=== PATIENT | male | born 1965 | race Caucasian/White ===

== ENCOUNTER 2016-10-13 11:08 | Day surgery (SDC) | payer OTHER, BC ==
[2016-10-12 14:34] LABS: BASO % 0.4 %; BASO ABS # 0.03 K/uL (0-0.2); COMPLETE YES; EOS % 1.9 %; HEMATOCRIT 46.9 % (42-52); IG% 0.2 %; LYMPH % 28.1 %; LYMPH ABS # 2.36 K/uL (1.2-3.4); MEAN CELL VOLUME 85.6 fL (80-100); MEAN CORPUSCULAR HEMOGLOBIN 30.7 pg (25-34); MEAN CORPUSCULAR HGB CONC 35.8 g/dl (32-36); MEAN PLATELET VOLUME 9.3 fL (7.4-10.4); MONO % 8.6 %; NEUT % 60.8 %; PLATELET COUNT 264 K/uL (130-400); RED BLOOD COUNT 5.48 M/uL (4.7-6.1); WHITE BLOOD COUNT 8.39 K/uL (4.8-10.8)
[2016-10-12 14:37] LABS: URINE APPEARANCE CLEAR (CLEAR); URINE BILIRUBIN NEG (NEG); URINE COLOR YELLOW; URINE NITRITE NEG (NEG); URINE PH 6.5 (4.5-7.5); URINE SPECIFIC GRAVITY 1.011 (1.000-1.030); UROBILINOGEN NEG (NEG)
[2016-10-12 14:43] LABS: MANUAL MICROSCOPIC REQUIRED? NO; REVIEW REQ? NO
[2016-10-12 14:56] VITALS: BMI 24.0; BMI 25.0
[2016-10-12 15:03] LABS: BUN/CREATININE RATIO 14.7 (10-20); CALCIUM 9.1 mg/dl (8.5-10.1); CREATININE 0.88 mg/dl (0.60-1.40); POTASSIUM 4.1 mmol/L (3.5-5.1)
--- NOTE | 2016-10-12 19:12 | HISTORY & PHYSICAL EXAMINATION ---
DATE OF ADMISSION: 10/13/2016 SUBJECTIVE AND CHIEF COMPLAINT: Left ankle swelling. HISTORY OF PRESENT ILLNESS: This is a patient who approximately 4 months ago sustained a fall from a height and had an intra-articular distal tibia fracture as well as a fibula fracture. He had an ORIF performed in [place] and has been following up here in [place] closer to home. He was progressing well; however, he started having swelling at the lateral aspect of the ankle. He was seen on 10/12/2016 and noted to have what appeared to be a hematoma within the lateral aspect of the left ankle. He is currently being set up for I\T\D of the area with possible cultures being done as the discharge is purulent. PAST MEDICAL HISTORY: History of skin cancer. SOCIAL HISTORY: The patient denies tobacco use, has approximately 12 alcoholic drinks per week. FAMILY HISTORY: Noncontributory. PAST SURGICAL HISTORY: Tonsillectomy and a left ankle surgery in May of 2016. ALLERGIES: No known drug allergies. CURRENT MEDICATIONS: None. OBJECTIVE PHYSICAL EXAMINATION: GENERAL: The patient is alert and oriented x3. He is in no acute distress. He is a well-dressed, well-nourished 51-year-old male whose affect is appropriate. CARDIOVASCULAR: Heart has a regular rhythm and rate without murmurs. LUNGS: Clear to auscultation bilateral. Dorsalis pedis, posterior tib pulse +2/4. Cap refill less than 2 seconds. LYMPHATIC: No evidence of any swollen lymph nodes. MUSCULOSKELETAL: The patient is partial weightbearing on the left lower extremity on a walking boot. After removal of the walking boot, he was noted to have well-healed surgical incisions. At the lateral aspect of the ankle, there is noted to be a fluctuant area. There is no erythema, no ecchymosis noted. There is no open draining area. He has decreased range of motion and strength of left lower extremity. NEUROLOGIC: Sensation normal and intact distally. SKIN: As previously noted, there is well-healed surgical incision, left ankle. X-RAY EXAM: Multiple views of the left ankle demonstrate stable hardware and implants in the distal tibia with a stable and well aligned distal tibia and distal fibula fractures. ASSESSMENT AND DIAGNOSES: 1. Left ankle swelling, possible hematoma. PLAN: Above assessment was discussed with the patient. At this time, it was recommended the patient undergo a left ankle I\T\D of hematoma of the lateral ankle wound cultures. All potential risks, benefits, complications, alternatives and rehab have been discussed with the patient. At this time, he wishes to proceed with the surgery as indicated. He will be scheduled for the surgery 10/13/2016. OMAR
[~2016-10-13] VITALS: Ht 172.7 cm; Wt 75.0 kg
[~2016-10-13 11:08] MED LIST: CALC-478 PO; CEFAZOLIN 1000MG/55 ML D5W IV SCH; CEFAZOLIN 2000 MG/60 ML D5W 60 ML IV SCH; CHOL1000 PO; LACTATED RINGER'S 1000ML 1,000 ML IV SCH; MULT-506 PO
[2016-10-13 11:37] VITALS: BP 147/93; PULSE 84; TEMP 36.6; O2SAT 98; Ht 172.7 cm; Wt 75.0 kg
--- NOTE | 2016-10-13 11:49 | History & Physical Bridge Note ---
H&P Re-Evaluation Bridge Note: I have examined the patient, reviewed the History & Physical and in the interval since the performance of the History & Physical I have noted the following changes of clinical significance: No changes noted
[2016-10-13] MEDS ORDERED: MIDAZOLAM HCL 1 MG/ML 2ML VIAL ONE (12:23)
[2016-10-13] MEDS ORDERED: DEXAMETHASONE SOD INJ 4 MG/ML VIAL ONE (12:23)
[2016-10-13] MEDS ORDERED: ONDANSETRON INJ 2 MG/ML 2 ML VIAL ONE (12:23)
[2016-10-13] MEDS ORDERED: PROPOFOL IV EMULSION 10 MG/ML 20 ML VIAL IV ONE (12:23)
[2016-10-13] MEDS ORDERED: LIDOCAINE HCL 2% 2 ML VIAL (20MG/ML) ONE (12:23)
[2016-10-13] MEDS ORDERED: FENTANYL CITRATE INJ 50 MCG/1 ML 2 ML VIAL ONE (12:24)
[2016-10-13] MEDS ORDERED: BUPIVACAINE 0.5 % 5 MG/1 ML MPF 30ML VIAL ONE (13:09)
[2016-10-13] MEDS ORDERED: BACITRACIN 50000 UNIT VIAL ONE ×2 (13:09→14:11)
[2016-10-13] MEDS ORDERED: PROMETHAZINE HCL INJ 6.25 MG in SODIUM CHLORIDE 0.9% 50ML 50 ML IV PRN (15:15)
[2016-10-13] MEDS ORDERED: HYDROmorphone INJ 1 MG/ML SYR IV PRN (15:15)
[2016-10-13] MEDS ORDERED: ATROPINE SULFATE 0.1 MG/ML 5ML SYR IV PRN (15:15)
[2016-10-13] MEDS ORDERED: ONDANSETRON INJ 2 MG/ML 2 ML VIAL IV PRN (15:15)
[2016-10-13] MEDS ORDERED: EpHEDrine SULFATE INJ 50 MG/ML AMP IV PRN (15:15)
[2016-10-13] MEDS ORDERED: FENTANYL CITRATE INJ 50 MCG/1 ML 2 ML VIAL IV PRN (15:15)
--- NOTE | 2016-10-13 15:34 | [facility] Post Operative Brief Note ---
Immediate Operative Summary Operative Date Oct 13, 2016. Pre-Operative Diagnosis Left lateral ankle hematoma Post-Operative Diagnosis Left lateral ankle hematoma Procedure(s) Performed Incision and drainage, left lateral ankle hematoma Surgeon Dr. Lemon Brick Molder Hand Surgeon(s) none Estimated Blood Loss 3ml Findings See Dict Specimens culture: left ankle aerobic, anerobic, gram stain sent at 1501 Drains None Anesthesia GLMA w/ local Complication(s) None Disposition Recovery Room / PACU
--- NOTE | 2016-10-13 15:42 | Discharge Instructions ---
Discharge Instructions Admission Reason for Admission: Left Ankle Hematoma Discharge Discharge Diagnosis / Problem: Left Ankle Hematoma Discharge Goals Goal(s): Decrease discomfort, Improve function Activity Recommendations Activity Limitations: per Instructions/Follow-up section . Instructions / Follow-Up Instructions / Follow-Up ACTIVITY RECOMMENDATIONS: Limitations: Partial heel weight bearing only if able to tolerate. SPECIAL CARE INSTRUCTIONS: * Some drainage onto the dressing is normal and is no cause for alarm. * Some swelling is natural especially after walking. * When resting, keep your foot elevated above the level of your heart. * Call [facility] if you notice: -Increased drainage -Fever over 101 degrees F -Severe constant pain BANDAGE: * Leave bandage/cast in place unless otherwise directed. * Keep bandage/cast dry at all times. FOLLOW UP VISIT WITH DR. PRICE If appointment is not already scheduled: Please call [facility] after you get home today to schedule a follow-up appointment for next week with Dr. Price at . Current Hospital Diet Patient's current hospital diet: Discharge Diet Recommended Diet: Regular Diet Procedures Procedures Performed: Incision and drainage, left lateral ankle hematoma Pending Studies Studies pending at discharge: no Medical Emergencies . Who to Call and When: Medical Emergencies: If at any time you feel your situation is an emergency, please call [phone] immediately. . Non-Emergent Contact Non-Emergency issues call your: Surgeon Call Non-Emergent contact if: temperature is above 101, wound has increased redness, wound has increased pain . "Provider Documentation" section prepared by Nemesio Price. VTE Core Measure Inpt VTE Proph given/why not?: Treatment not indicated
[2016-10-13] MEDS ORDERED: OXYCODONE/ACETAMINOPHEN 5-325 TAB PO PRN (15:45)
--- NOTE | 2016-10-13 15:55 | Anesthesiology Progress Note ---
Anesthesia Post Op Note Date & Time Oct 13, 2016 at 15:55 Vital Signs Pain Intensity: 0 Vital Signs Past 12 Hours Date Time Temp Pulse Resp B/P Pulse Ox O2 Delivery O2 Flow Rate FiO2 10/13/16 15:45 139/98 10/13/16 15:44 71 19 10/13/16 15:44 71 19 97 10/13/16 15:40 139/98 10/13/16 15:39 78 19 99 10/13/16 15:39 79 19 10/13/16 15:35 137/98 10/13/16 15:34 74 18 100 10/13/16 15:34 75 18 10/13/16 15:30 138/95 10/13/16 15:29 76 17 10/13/16 15:29 76 17 100 10/13/16 15:25 136/90 10/13/16 15:24 77 14 130/90 10/13/16 15:24 14 10/13/16 15:24 36.0 76 18 130/90 99 Mask 10 10/13/16 11:37 36.6 84 20 147/93 98 Room Air Notes Mental Status: alert / awake / arousable, participated in evaluation Pt Amnestic to Procedure: Yes Nausea / Vomiting: adequately controlled Pain: adequately controlled Airway Patency, RR, SpO2: stable & adequate BP & HR: stable & adequate Hydration State: stable & adequate Anesthetic Complications: no major complications apparent
[2016-10-13 16:12] VITALS: BP 151/90; PULSE 73; TEMP 36.5; O2SAT 97
[2016-10-13 16:45] VITALS: BP 142/87; PULSE 75; O2SAT 98
[2016-10-13 17:15] VITALS: BP 124/76; PULSE 82; TEMP 36.9; O2SAT 98
--- NOTE | 2016-10-13 23:24 | OPERATIVE REPORT ---
DATE OF OPERATION: 10/13/2016 PREOPERATIVE DIAGNOSIS: Hematoma, left lateral ankle. POSTOPERATIVE DIAGNOSIS: Same. PROCEDURE: Evacuation of hematoma, left lateral ankle. SURGEON: Dr. Lemon. MOTOR OPERATOR: None. ANESTHESIA: General LMA with local. SPECIMENS: Aerobic, anaerobic, Gram stain. DRAINS: None. COMPLICATIONS: None. BLOOD LOSS: 3 mL. PERTINENT HISTORY: This is a 51-year-old gentleman, who had sustained a significant falling injury on his left lower extremity in [place]. He underwent ORIF in [place] and was then doing his postop followup care with my clinic. The patient developed redness, pain and swelling over the lateral aspect of his left ankle approximately 2 weeks ago and noticed intermittent worsening. He has had no redness or streaking up the leg. No fevers or chills. No loss of appetite, nausea, vomiting or diarrhea. The patient presented to the clinic yesterday, was seen for routine followup. Radiographs were obtained, noting stable hardware and fixation and early callus formation within the bone; however, noticed an approximately 1.5 x 2 cm x 1 cm hematoma in lateral aspect of his left ankle. The patient was then scheduled for surgery as indicated. All potential risks, benefits, complications, alternatives, rehab, potential for incomplete relief of symptoms, need for further surgery, DVT, PE, , persistent pain, swelling, scarring, weakness, neurovascular injury, wound complications, need for further surgery were discussed with the patient. The patient decided to proceed with the procedure as indicated. PROCEDURE IN DETAIL: The patient was taken to the operative suite and placed supine on the operating room table. After review of consent and identification of proper operative site, the patient was anesthetized, LMA was placed. Tourniquet was placed high on the left thigh over cast padding. Left lower extremity was then sterilely prepped and draped in usual fashion, elevated and tourniquet inflated to 350 mmHg. There was no exsanguination performed due to the possibility of infection. Next, 15-blade scalpel was used to make an incision over the lateral aspect of the left ankle, centered over the hematoma. The incision was deepened through the skin. The fascia appeared intact, tendon sheath was intact. At this point, a culture was obtained, aerobic, anaerobic, Gram stain and passed off for specimen. Next, a small curette was then used to curettage the cyst cavity. This was performed around the peroneal tendon sheath and also the subdermal tissue. After any nonviable tissue was resected, next pulsatile lavage of 3 liters with bacitracin was used to cleanse the hematoma until clear. Next, top gloves and top sheet were changed and the wound was assessed for possible deep penetration into the area of the tendon sheath over the hardware. There was no tracking of the hematoma pocket. It appeared to be a blind pouch. Next, the hematoma sac was then closed using interrupted 4-0 nylon sutures and then 0.5% Marcaine plain, approximately 12 mL, was injected around the incision area. Excellent approximation of the tissue was achieved and then a sterile compressive dressing was applied, overwrapped with an [place] wrap. The tourniquet was released. The patient was awakened and taken to recovery in stable condition. I attest to the content of the Intraoperative Record and any orders documented therein. Any exceptio ns are noted below.
== END 2016-10-13 17:35 | disposition home or self-care (01) ==
LOC: C.ACU 11:08
PROVIDERS: ATTEND Orthopaedic Surgery Sports Medicine
DX: S90.00XA Contusion of unspecified ankle, initial encounter (principal); W17.89XA Other fall from one level to another, initial encounter; Y93.89 Activity, other specified; Y92.89 Other specified places as the place of occurrence of the external cause; Y99.8 Other external cause status